=== PATIENT | male | born 1970 | race Caucasian/White ===

== ENCOUNTER 2017-06-02 01:15 | Emergency (ER) | payer OTHER ==
[2017-06-02 01:23] VITALS: TEMP 97.9
[2017-06-02] MEDS ORDERED: HYDROCODONE/APAP 5/325 TAB PO ONE (01:46)
[2017-06-02] MEDS ORDERED: HYDROCOD/APAP 5/325 PREPACK#6 BTL TAKEHOME ONE (01:46)
[2017-06-02] MEDS ORDERED: LIDOCAINE 5% 1 EA PATCH TD ONE (01:52)
[2017-06-02 01:54] LABS: % IMMATURE GRANULYOCYTES 0.4 % (0.0-1.1); ABSOLUTE IMMATURE GRANULOCYTES 0.02 10^3/uL (0.00-0.10); ADD DIFF? NO; ADD MORPH? NO; ADD SCAN? NO; ATYPICAL LYMPHOCYTE FLAG 10 (0-99); FRAGMENT RBC FLAG 0 (0-99); HEMATOCRIT 44.9 % (40.0-51.0); HEMOGLOBIN 15.3 g/dL (13.7-17.5); LEFT SHIFT FLG 0 (0-99); LIPEMIA HEMOLYSIS FLAG 90 (0-99); MEAN CELL HEMOGLOBIN 28.2 pg (27.9-34.1); MEAN CELL HEMOGLOBIN CONCENTR. 34.1 g/dL (32.4-36.7); MEAN CELL VOLUME 82.7 fL (81.5-99.8); MEAN PLATELET VOLUME 11.1 fL (8.7-11.7); PLATELET CLUMPS FLAG 0 (0-99); PLATELET COUNT 113 10^3/uL (150-400); RED BLOOD CELL COUNT 5.43 10^6/uL (4.40-6.38); RED CELL DISTRIBUTION WIDTH 14.6 % (11.5-15.2)
[2017-06-02 02:01] LABS: SEDIMENTATION RATE 8 MM/HR (0-15)
--- NOTE | 2017-06-02 02:06 | EDPHY ---
H & P Time Seen by Provider: 06/02/17 01:35 HPI/ROS: Chief complaint: Right hand pain History of present illness: This 46-year-old male with past medical history of diabetes mellitus, hypertension, depression, asthma, and schizoaffective disorder presents to the emergency department with a friend stating that he had an IV in his hand in December and since that time he has had some pain full nodules on the dorsum of the hand. He states he saw his primary care provider who thought it was a phlebitis. His friend states they gave him prednisone but that did not help. He has been taking ibuprofen without relief. He denies other trauma. The nodules are tender, palpable and erythematous. The move around and are not limited to the vessel where he states the IV was started. He has not had a fever or wound drainage. They admit to going to multiple other emergency departments for this same issue. He thinks an x-ray was done a few months back and believes it was normal. They also say that he has a follow-up appointment with an parts specialist on June 13 in [place]. A review of his past records at our facility shows a visit dated November 24, 2015 when he presented for pain and redness over the dorsal aspect of the same hand. He does not remember this visit. At that time he woke up with pain and assumed he hit his hand on his night stand. An x-ray on that visit was normal. REVIEW OF SYSTEMS: Constitutional: No fever, no chills. Eyes: No discharge. ENT: No sore throat. Respiratory: No cough, no shortness of breath. Cardiac: No chest pain, no palpitations. Gastrointestinal: No abdominal pain, no vomiting. Genitourinary: No hematuria. Musculoskeletal: No back pain. Skin: No rashes. Neurological: No headache. Past Medical/Surgical History: Past medical history includes diabetes mellitus, hypertension, depression, asthma, schizoaffective disorder Past surgical history includes cholecystectomy last December Family history is positive for premature coronary artery disease in his father ( ); The patient states his mother is in good health. Allergies: Haldol. He states he goes into anaphylactic shock. Medications include lisinopril, metformin, gabapentin, albuterol, Zoloft, Invega. The patient thinks he is on a few other medications but cannot remember them at this time. Social History: Social history: The patient has smoked 1 and half packs per day for approximately 35 years. He has an occasional alcoholic beverage maybe once a month. He denies marijuana or injectable drug use. Smoking Status: Current every day smoker Physical Exam: General: Alert and oriented x3, in mild discomfort Skin: Normal for ethnicity, warm and dry HEENT: Normocephalic, atraumatic, pupils equally round, conjunctiva clear without erythema, mucosa moist Neck: Supple, no JVD Cardiac: Normal peripheral perfusion, no edema Pulmonary: Nonlabored respirations Musculoskeletal: The right hand has 2 palpable nodules that are tender and slightly erythematous. There is no warmth. The nodules are on the dorsum of the hand between the 1st and 2nd digit and over the base of the thumb. There are no open wounds, lymphadenitis, and does not follow the course of the the vessel where the patient states he had his IV in December. Pulses and capillary refill are normal. Good truck shop mechanic strength. Neuro: The patient has a slight tremor; no agitation. Constitutional: Initial Vital Signs Temperature (C) 97.9 F 06/02/17 01:19 Heart Rate 69 06/02/17 01:19 Respiratory Rate 18 06/02/17 01:19 Blood Pressure 142/87 H 06/02/17 01:19 O2 Sat (%) 95 06/02/17 01:19 O2 Delivery Mode Room Air Allergies/Adverse Reactions: haloperidol [From Haldol] Allergy (Verified 11/24/15 19:11) haloperidol lactate [From Haldol] Allergy (Verified 11/24/15 19:11) Home Medications: Medication Instructions Recorded Albuterol [Proventil Inhaler HFA 2 puffs IH Q4 PRN 01/14/15 (*)] Atorvastatin Calcium [Lipitor 40 40 mg PO HS 01/14/15 mg (*)] Beclomethasone Qvar 80 [Qvar 80 2 puffs IH QID PRN 01/14/15 (*)] Doxepin HCl 300 mg PO HS 01/14/15 Fenofibrate [Tricor 145 mg (*)] 145 mg PO DAILY 01/14/15 Insulin Aspart [novoLOG] 10 unit SC AC 01/14/15 Insulin Detemir [Levemir] 45 unit SC HS 01/14/15 Paliperidone Palmitate [Invega 234 mg IM .[id number] 01/14/15 Sustenna (*)] Lisinopril [Zestril 10 mg (*)] 10 mg PO DAILY #30 tab 01/20/15 Mirtazapine [Remeron] 30 mg PO DAILY #30 tab 01/20/15 Quetiapine Fumarate [Seroquel Xr] 1,200 mg PO HS #90 tab.sr.24h 01/20/15 Quetiapine Fumarate [Seroquel Xr] 200 mg PO HS #30 tab.sr.24h 01/20/15 busPIRone [Buspar (*)] 30 mg PO BID #60 tab 01/20/15 lamoTRIgine [LamICTAL 100 MG (*)] 300 mg PO DAILY #30 tab 01/20/15 metFORMIN HCL [Glucophage 500 mg 1,000 mg PO BIDMEAL #60 tab 01/20/15 (*)] oxyCODONE/APAP 5/325 [Percocet 1 - 2 tab PO Q4-6PRN PRN #14 tab 09/17/15 5/325 (RX)] AZITHROMYCIN [Z-PACK] 250 mg PO DAILY #4 packet 11/02/15 guaiFENesin [Mucinex] 600 mg PO BID #20 tab.er 11/02/15 Medical Decision Making - Diagnostics Imaging: Discussed imaging studies w/ logistic specialist Radiologist (Diane), I viewed and interpreted images myself (STS betwees 1st and 2nd digit) ED Course/Re-evaluation: The patient was seen and examined. Vital signs and prior records were reviewed. As noted earlier the patient had a visit from November 2015 with similar complaints of pain and areas of erythema on the dorsum of the right hand. A plain x-ray was performed of the right hand and I felt there was a suggestion of soft tissue swelling between the 1st and 2nd digit however verbal report from the radiologist, Dr. Pan, was read as negative. He will review the film again after hearing the patient's history. Please refer to final report. A CBC showed only a mild thrombocytopenia probably from the patient's ibuprofen use. His basic metabolic panel was normal except for a slightly elevated blood glucose which was nonfasting. His sed rate was normal. His CRP came back elevated at 16. He was given 2 [place] in the emergency department and a topical Lidoderm patch without significant relief of his discomfort. He had a take-home bottle of [place]. No other prescriptions. He has a follow-up in place with an parts specialist on June 13, 2017. 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 Differential Diagnosis: Differential diagnosis includes but is not limited to rheumatoid nodules, foreign body, phlebitis, dermatologic condition (unidentified), contusion - Data Points Laboratory Results: Laboratory Results 06/02/17 01:33 06/02/17 01:06/02/17 06/02/17 01:33 01:33 WBC 5.59 10^3/uL 10^3/uL (3.80-9.50) RBC 5.43 10^6/uL 10^6/uL (4.40-6.38) Hgb 15.3 g/dL g/dL (13.7-17.5) Hct 44.9 % % (40.0-51.0) MCV 82.7 fL fL (81.5-99.8) MCH 28.2 pg pg (27.9-34.1) MCHC 34.1 g/dL g/dL (32.4-36.7) RDW 14.6 % % (11.5-15.2) Plt Count 113 10^3/uL L 10^3/uL (150-400) MPV 11.1 fL fL (8.7-11.7) Neut % (Auto) 68.0 % % (39.3-74.2) Lymph % (Auto) 24.7 % % (15.0-45.0) [place] % (Auto) 5.0 % % (4.5-13.0) Eos % (Auto) 1.4 % % (0.6-7.6) Baso % (Auto) 0.5 % % (0.3-1.7) Nucleat RBC Rel Count 0.0 % % (0.0-0.2) Absolute Neuts (auto) 3.80 10^3/uL 10^3/uL (1.70-6.50) Absolute Lymphs (auto) 1.38 10^3/uL 10^3/uL (1.00-3.00) Absolute Monos (auto) 0.28 10^3/uL L 10^3/uL (0.30-0.80) Absolute Eos (auto) 0.08 10^3/uL 10^3/uL (0.03-0.40) Absolute Basos (auto) 0.03 10^3/uL 10^3/uL (0.02-0.10) Absolute Nucleated RBC 0.00 10^3/uL 10^3/uL (0-0.01) Immature Gran % 0.4 % % (0.0-1.1) Immature Gran # 0.02 10^3/uL 10^3/uL (0.00-0.10) ESR 8 MM/HR MM/HR (0-15) Sodium 142 mEq/L mEq/L (134-144) Potassium 3.8 mEq/L mEq/L (3.5-5.2) Chloride 105 mEq/L mEq/L (97-110) Carbon Dioxide 23 mEq/l mEq/l (22-31) Anion Gap 14 mEq/L mEq/L (8-16) BUN 12 mg/dL mg/dL (7-23) Creatinine 0.8 mg/dL mg/dL (0.7-1.3) Estimated GFR > 60 Glucose 131 mg/dL H mg/dL (70-100) Calcium 9.2 mg/dL mg/dL (8.5-10.4) C-Reactive Protein 16.0 mg/L H mg/L (<10.0) Medications Given: Discontinued Medications Hydrocodone Bitart/Acetaminophen ([place] 5/325mg Prepack#6) 1 btl TAKEHOME EDNOW ONE Stop: 06/02/17 01:47 Last Admin: 06/02/17 02:29 Dose: 1 btl Hydrocodone Bitart/Acetaminophen ([place] 5/325) 2 tab PO EDNOW ONE Stop: 06/02/17 01:47 Last Admin: 06/02/17 01:57 Dose: 2 tab Lidocaine (Lidoderm 5%) 1 ea TD EDNOW ONE Stop: 06/02/17 01:53 Last Admin: 06/02/17 01:58 Dose: 1 ea Departure - Departure Disposition: Home, Routine, Self-Care Condition: Good Instructions: Hydrocodone/Acetaminophen (By mouth), Lidocaine Patch (On the skin), Arthralgia (ED) Additional Instructions: I am not sure what is causing the painful lumps in your hand for the last few months (or maybe even since your visit in November 2015). There is soft tissue swelling seen on your hand x-ray by my reading. I will call you tomorrow after the radiologist has officially read your x-ray. Your labs look good with the exception of decreased platelets which is probably for the ibuprofen you have been taking. One of the blood tests is not yet back and I will let you know that result tomorrow as well. Keep your appointment on 06/13/17 with the parts specialist but talk to your primary care provider about possibly seeing a [facility] [place] [facility] if he feels it is indicated. You may also need more advanced imaging as an outpatient. Return to the ER if symptoms worsen (fever, increased pain or suspected abscess, etc). Tell your primary care provider and any consultants that you had a prior visit in November 2015 that seemed like it was for similar symptoms and also that you had a plain hand x-ray and basic labs (CBC, BMP, CRP, ESR) in the ED tonight so they can review them. Referrals: Patient,NotPresent [Primary Care Provider] - As per Instructions DAIN REYES [Non Staff Provider ()] - As per Instructions (Call tomorrow to arrange a follow up with your primary care provider after your orthopedic follow up or sooner if symptoms change or worsen.)
[2017-06-02 02:07] LABS: ANION GAP 14 mEq/L (8-16); CALCIUM 9.2 mg/dL (8.5-10.4); CARBON DIOXIDE 23 mEq/l (22-31); CHLORIDE 105 mEq/L (97-110); CREATININE 0.8 mg/dL (0.7-1.3); GLOMERULAR FILTRATION RATE > 60; GLUCOSE 131 mg/dL (70-100); POTASSIUM 3.8 mEq/L (3.5-5.2); SODIUM 142 mEq/L (134-144)
[2017-06-02 04:39] VITALS: BP 137/69; PULSE 77; RESP 18; O2SAT 95
[2017-06-02] MEDS ORDERED: LIDOCAINE 5% 1 EA PATCH TD SCH (09:00)
[2017-06-02] MEDS ORDERED: PATCH REMOVAL 1 EA PATCH TD SCH ×2 (21:00)
== END 2017-06-02 03:06 | disposition home or self-care (01) ==
LOC: CED 01:15
DX: M79.641 Pain in right hand (principal); F17.200 Nicotine dependence, unspecified, uncomplicated; I10 Essential (primary) hypertension; E11.9 Type 2 diabetes mellitus without complications; J45.909 Unspecified asthma, uncomplicated; Z79.4 Long term (current) use of insulin
CPT/HCPCS: 73130-PO; 80048-PO; 85025-PO; 85652-PO

== ENCOUNTER 2018-08-13 18:32 | Inpatient (IN) | payer OTHER, MEDICAID ==
--- NOTE | 2018-08-13 18:51 | EDPHY ---
H & P Stated Complaint: DVT/from US Time Seen by Provider: 08/13/18 18:50 HPI/ROS: HPI: This is a 48-year-old male who presents with Chief Complaint: DVT from ultrasound Location: Left calf Quality: Swelling and pain Duration: 2 weeks Signs and Symptoms: No bleeding, no radiation, no numbness, no weakness, no tingling, no incontinence, + decreased range of motion, + swelling, + pain, no fever Timing: Gradually worsening Severity: Moderate to severe Context: Patient has a history of homozygous factor 5 Leiden, since March 2018 right upper extremity superficial venous thrombus on Coumadin, last INR level 2 days ago per patient was 3.7 presents from ultrasound with left posterior tibial vein deep venous thrombosis and greater saphenous vein superficial thrombosis. Patient is waiting for outpatient referral to Hematology. He also has developed he what appears to be a hematoma in his left hand. Patient does use tobacco. Patient reports that over the last 2 weeks he has developed left calf swelling, pain and mild redness. Denies shortness of breath, chest pain, recent long distance travel. Patient will reports that he gets superficial clots with any IV placement or laboratory access. Modifying Factors: Coumadin Comment: ROS: A comprehensive 10 system review of systems is otherwise negative aside from elements mentioned in the history of present illness. MEDICAL/SURGICAL/SOCIAL HISTORY: Medical history: SCHIZOAFFECTIVE DISORDER, asthma, factor 5 Leiden, DVT, superficial thrombophlebitis Surgical history: vasectomy Social history: Tobacco user CONSTITUTIONAL: Polite and cooperative, middle-aged white male, smells of tobacco, awake and alert, no obvious distress HEENT: Atraumatic and normocephalic. NECK: supple, no midline tenderness Cardiovascular: Normal S1/S2, regular rate, regular rhythm, without murmur rub or gallop. PULMONARY/CHEST: Symmetrical and nontender. Clear to auscultation bilaterally. Good air movement. No accessory muscle usage. ABDOMEN: Soft, nondistended, nontender, protuberant. EXTREMITIES: 2/2 pulses, strength 5/5, left calf is twice the size of the right calf; positive Homans sign; mild erythema and warmth. No palpable cords. DIP/PIP/MCP flexion/extension intact with good light touch sensation. no deformities, no clubbing, no cyanosis or edema. NEUROLOGICAL: no focal neuro deficits. GCS 15. Light touch sensation intact. SKIN: Warm and dry, left hand at the base of the 5th metacarpal shows small hematoma that is approximately 2 in in size. no rash. Good capillary refill. Source: Patient Exam Limitations: No limitations - Personal History Current Tetanus/Diphtheria Vaccine: No - Medical/Surgical History Hx Asthma: No Hx Chronic Respiratory Disease: No Hx Diabetes: No Hx Cardiac Disease: No Hx Renal Disease: No Hx Cirrhosis: No Hx Alcoholism: No Hx HIV/AIDS: No Hx Splenectomy or Spleen Trauma: No Other PMH: SCHIZOAFFECTIVE DISORDER. asthma. vasectomy - Social History Smoking Status: Current every day smoker Constitutional: Initial Vital Signs Temperature (C) 36.9 C 08/13/18 18:41 Heart Rate 82 08/13/18 18:41 Respiratory Rate 18 08/13/18 18:41 Blood Pressure 133/81 H 08/13/18 18:41 O2 Sat (%) 93 08/13/18 18:41 O2 Delivery Mode Room Air Allergies/Adverse Reactions: aripiprazole [From Abilify] Allergy (Verified 08/13/18 18:44) haloperidol [From Haldol] Allergy (Verified 08/13/18 18:44) haloperidol lactate [From Haldol] Allergy (Verified 08/13/18 18:44) Home Medications: Medication Instructions Recorded Albuterol [Proventil Inhaler HFA 2 puffs IH Q4 PRN 01/14/15 (*)] Atorvastatin Calcium [Lipitor 40 40 mg PO HS 01/14/15 mg (*)] Beclomethasone Qvar 80 [Qvar 80] 2 puffs IH QID PRN 01/14/15 Doxepin HCl 300 mg PO HS 01/14/15 Fenofibrate [Tricor 145 mg (*)] 145 mg PO DAILY 01/14/15 Insulin Aspart [novoLOG] 10 unit SC AC 01/14/15 Insulin Detemir [Levemir] 45 unit SC HS 01/14/15 Paliperidone Palmitate [Invega 234 mg IM .[id number] 01/14/15 Sustenna (*)] Lisinopril [Zestril 10 mg (*)] 10 mg PO DAILY #30 tab 01/20/15 Mirtazapine [Remeron] 30 mg PO DAILY #30 tab 04/15/15 Quetiapine Fumarate [Seroquel Xr] 1,200 mg PO HS #90 tab.sr.24h 01/20/15 Quetiapine Fumarate [Seroquel Xr] 200 mg PO HS #30 tab.sr.24h 01/20/15 busPIRone [Buspar (*)] 30 mg PO BID #60 tab 01/20/15 lamoTRIgine [LamICTAL 100 MG (*)] 300 mg PO DAILY #30 tab 01/20/15 metFORMIN HCL [Glucophage 500 mg 1,000 mg PO BIDMEAL #60 tab 01/20/15 (*)] oxyCODONE/APAP 5/325 [Percocet 1 - 2 tab PO Q4-6PRN PRN #14 tab 09/17/15 5/325 (RX)] AZITHROMYCIN [Z-PACK] 250 mg PO DAILY #4 packet 11/02/15 guaiFENesin [Mucinex] 600 mg PO BID #20 tab.er 11/02/15 Medical Decision Making - Diagnostics Imaging Results: Imaging Impressions Extremity Venous Study 08/13/18 17:32 Impression: 1. Positive deep venous thrombosis in the left calf posterior tibial vein. 2. Positive superficial thrombophlebitis in the left calf greater saphenous vein 3. No deep venous thrombosis right leg. Findings and recommendations given to Dr. Fuller labor relations manager for Rolando Mcdonough MD at 18:22 hour, 08/13/2018. Patient will be taken to the emergency department. Findings and recommendations discussed with Emergency Department physician, Erika Funk PA-C at 18:28 hour, 08/13/2018. Final report concurs with initial preliminary interpretation. A test result has been communicated to a licensed care provider and documented in the [employer] Critical Result system on 08/13/2018 18:30, Message ID [id number]. ED Course/Re-evaluation: Vital signs reviewed and stable upon arrival. O2 sats 93% on room air. No tachycardia. Patient is left calf positive DVT in the posterior tibial vein along with superficial left greater saphenous vein thrombosis. IV access and laboratory studies obtain. 1927: Labs reviewed. WBC 7 K, H&H 16.9/49.1, platelets 131K, INR 2.6, creatinine 0.9 Given Lovenox 1 mg/kg may be a candidate for IVC filter? ED decision to consult for admission. Will consult Hematology for anticoagulation and hospitalist for admission. Spoke with Hematology Dr. Mejía , who recommends treatment with Lovenox 1 mg/kg twice daily and will kindly consult on patient. Spoke with hospitalist, Dr. Rob Song, who kindly agrees to admit patient and provide further care. This patient was seen under the supervision of my secondary supervising physician. I evaluated care for this patient with the help of my attending. Discussed this patient with Dr. Salinas. Differential Diagnosis: Differential diagnosis includes but is not limited to coagulopathy, DVT. - Data Points Laboratory Results: Laboratory Results 08/13/18 19:05 08/13/18 19:05 08/13/18 08/13/18 08/13/18 19: 19: 19:05 WBC 7.81 10^3/uL 10^3/uL (3.80-9.50) RBC 5.99 10^6/uL 10^6/uL (4.40-6.38) Hgb 16.9 g/dL g/dL (13.7-17.5) Hct 49.1 % % (40.0-51.0) MCV 82.0 fL fL (81.5-99.8) MCH 28.2 pg pg (27.9-34.1) MCHC 34.4 g/dL g/dL (32.4-36.7) RDW 14.6 % % (11.5-15.2) Plt Count 131 10^3/uL L 10^3/uL (150-400) MPV 10.8 fL fL (8.7-11.7) Neut % (Auto) 70.7 % % (39.3-74.2) Lymph % (Auto) 20.0 % % (15.0-45.0) [place] % (Auto) 6.9 % % (4.5-13.0) Eos % (Auto) 1.4 % % (0.6-7.6) Baso % (Auto) 0.4 % % (0.3-1.7) Nucleat RBC Rel Count 0.0 % % (0.0-0.2) Absolute Neuts (auto) 5.52 10^3/uL 10^3/uL (1.70-6.50) Absolute Lymphs (auto) 1.56 10^3/uL 10^3/uL (1.00-3.00) Absolute Monos (auto) 0.54 10^3/uL 10^3/uL (0.30-0.80) Absolute Eos (auto) 0.11 10^3/uL 10^3/uL (0.03-0.40) Absolute Basos (auto) 0.03 10^3/uL 10^3/uL (0.02-0.10) Absolute Nucleated RBC 0.00 10^3/uL 10^3/uL (0-0.01) Immature Gran % 0.6 % % (0.0-1.1) Immature Gran # 0.05 10^3/uL 10^3/uL (0.00-0.10) PT 27.8 SEC H SEC (12.0-15.0) INR 2.60 H (0.83-1.16) APTT 49.1 SEC H SEC (23.0-38.0) Sodium 139 mEq/L mEq/L (135-145) Potassium 4.2 mEq/L mEq/L (3.3-5.0) Chloride 102 mEq/L mEq/L (97-110) Carbon Dioxide 26 mEq/l mEq/l (22-31) Anion Gap 11 mEq/L mEq/L (6-14) BUN 18 mg/dL mg/dL (7-23) Creatinine 0.9 mg/dL mg/dL (0.7-1.3) Estimated GFR > 60 Glucose 107 mg/dL H mg/dL (70-100) Calcium 9.9 mg/dL mg/dL (8.5-10.4) Medications Given: Discontinued Medications Hydrocodone Bitart/Acetaminophen ([place] 5/325) 2 tab PO EDNOW ONE Stop: 08/13/18 19:19 Last Admin: 08/13/18 19:19 Dose: 2 tab Enoxaparin Sodium (Lovenox) 112 mg SC EDNOW ONE Stop: 08/13/18 19:32 Last Admin: 08/13/18 19:53 Dose: 112 mg Departure - Departure Disposition: [facility] Clinical Impression: Factor V Leiden, Thrombocytopenia Left leg DVT Qualifiers: Affected thrombotic vein of extremity: tibial Chronicity: acute Qualified Code( s): I82.442 - Acute embolism and thrombosis of left tibial vein Condition: Fair
[2018-08-13] MEDS ORDERED: HYDROCODONE/APAP 5/325 TAB PO ONE (19:18)
[2018-08-13 19:21] LABS: PLATELET COUNT 131 10^3/uL (150-400)
[2018-08-13] MEDS ORDERED: ENOXAPARIN 120 MG/0.8 ML SYR SC ONE (19:31)
[2018-08-13 19:33] LABS: INR 2.6 (0.83-1.16); PROTIME(PATIENT) 27.8 SEC (12.0-15.0)
[2018-08-13] MEDS ORDERED: ACETAMINOPHEN 325 MG TAB PO PRN (20:49)
[2018-08-13] MEDS ORDERED: ENOXAPARIN 120 MG/0.8 ML SYR SC SCH (21:00)
--- NOTE | 2018-08-13 21:39 | GHP ---
DATE OF ADMISSION: 08/13/2018 CHIEF COMPLAINT: Left leg pain and swelling. HISTORY OF PRESENT ILLNESS: This is a 48-year-old male with a history of factor V Leiden mutation an d DVTs and superficial phlebitis, who was found to have a DVT in the left calf posterior tibial vein and superficial thrombophlebitis in the left calf greater saphenous vein despite having a therapeutic INR. Patient has been struggling with superficial phlebitis and has been on warfarin the past few months. Per the patient's report, his INR has been therapeutic. Currently, he denies any chest pain or shor tness of breath. He does smoke 2 packs of cigarettes per day and does not really want to quit. PAST MEDICAL HISTORY: 1. Factor V Leiden mutation. 2. Schizoaffective disorder. 3. Asthma. 4. Hypertension. 5. Diabetes. PAST SURGICAL HISTORY: 1. Vasectomy. 2. Cholecystectomy. 3. Urethral diverticulum repair. HOME MEDICATIONS: Reviewed. Refer to [employer] for details. ALLERGIES: Haldol and Abilify. SOCIAL HISTORY: Patient is a smoker. Denies any alcohol or illicit drug use. FAMILY HISTORY: Reviewed and noncontributory. REVIEW OF SYSTEMS: Comprehensive 10-point review of systems was done and is negative, except for as mentioned in the HPI. PHYSICAL EXAM: VITAL SIGNS: Blood pressure 140/79, pulse 75, respiratory rate 16, O2 sat 92% on rickey m air, temperature afebrile. GENERAL: No acute distress. HEAD: Normocephalic, atraumatic. EYES: PERRLA. Sclerae anicteric. MOUTH: Moist mucous membranes. NECK: Supple. No lymphadenopathy. C ARDIOVASCULAR: S1, S2. No JVD. There is left lower extremity edema with some tenderness over the l eft calf. ABDOMEN: Soft, nontender, nondistended. No guarding or rebound tenderness. Normoactive bowel sounds. EXTREMITIES: No clubbing or cyanosis. NEURO: Cranial nerves 2 through 12 grossly in tact. No focal motor or sensory deficits. SKIN: Clear. There are multiple tattoos; scorpion left forearm, right calf has a colorful skull. DIAGNOSTICS: WBC 7.8, hemoglobin 16.9, hematocrit 49.1, platelets 131, INR 2.6. Sodium 139, potassi um 4.2, chloride 102, BUN 18, creatinine 0.9, glucose 107. Lower extremity Doppler done today was re viewed showing DVT left calf posterior tibial vein as well as some superficial phlebitis. ASSESSMENT AND PLAN: This is a 48-year-old male with history of factor V Leiden mutation presenting with: 1. Left posterior tibial vein deep venous thrombosis while on Coumadin. a. Plan: Patient will be started on 1 mg/kg dosing of enoxaparin twice a day. The emergency room h as discussed the case with the on-call broth mixer, who will see the patient in the morning. I have discussed the risks of smoking and blood clots with the patient, and he understands this risk. He d oes not wish to quit smoking at this time. 2. Tobacco abuse. a. Plan: Will order nicotine replacement while in the hospital. 3. History of diabetes mellitus type 2. a. Plan: Monitor blood sugars and continue home medications. 4. History of hypertension. a. Plan is to continue home blood pressure medications and monitor blood pressure. 5. History of schizoaffective disorder. a. Plan is continue patient's home medications. 6. The patient requests to be full code status. /[id number]/MODL
[2018-08-13] MEDS: oxyCODONE IR 5 MG TAB PO PRN (22:03)
[2018-08-14 04:41] LABS: PLATELET COUNT 114 10^3/uL (150-400)
[2018-08-14] MEDS: oxyCODONE IR 5 MG TAB PO PRN (06:07)
[2018-08-14] MEDS: NICOTINE 21 MG/24 HR PATCH TD SCH (08:59)
[2018-08-14] MEDS ORDERED: ENOXAPARIN 120 MG/0.8 ML SYR SC SCH (09:00)
[2018-08-14] MEDS ORDERED: ALBUTEROL 60 PUFFS/8 GM MDI IH PRN (10:16)
[2018-08-14] MEDS ORDERED: HYDROCODONE/APAP 5/325 TAB PO PRN ×2 (10:16→12:30)
[2018-08-14] MEDS ORDERED: SALMETEROL IH SCH (10:30)
[2018-08-14] MEDS ORDERED: FENOFIBRATE 145 MG TAB PO SCH (10:30)
[2018-08-14] MEDS ORDERED: FLUTICASONE IH SCH (10:30)
[2018-08-14] MEDS ORDERED: IPRATROPIUM/ALBUTEROL 3 ML DEYVIAL ONE (11:36)
[2018-08-14] MEDS: IPRATROPIUM/ALBUTEROL 4GM MDI IH SCH ×3 (11:58→21:26)
--- NOTE | 2018-08-14 12:15 | ASMTCMCOM ---
CM Note CM Note Notes: patient plan of care reviewed in rounds. . 48 year old male admitted with DVT with factor V mutation. He is to be seen by hematology. Uncertain as to his therapeutic coumadin levels, Current with [facility], referral sent in allscripts. CM to follow for other needs. Plan: Home with [facility] when medically cleared for dc. Date Signed: 08/14/2018 12:14 PM Electronically Signed By:Jacqueline Beal RN
[2018-08-14] MEDS: BENZTROPINE MESYLATE 1 MG TAB PO SCH ×2 (12:30→13:44)
[2018-08-14] MEDS: busPIRone 15 MG TAB PO SCH ×2 (12:37→21:00)
[2018-08-14] MEDS: buPROPion XL 150 MG TAB PO SCH (12:38)
[2018-08-14] MEDS: LOSARTAN POTASSIUM 50 MG TAB PO SCH (12:39)
--- NOTE | 2018-08-14 14:01 | HOSPPROG ---
Hospitalist Progress Note Assessment/Plan: 48 yo M w FV Leiden, schizoaffective disorder here w DVT in setting of likely failed coumadin therapy DVT: appears to have failed coumadin has BROADCAST SYSTEMS ENGINEER admin meds has had therapeutic INR's per report sx X 2 weeks tranitioned to [facility] confusion: per family, having a hard time answering questions psych meds given late this AM has been having "chills" check cxr and UA low suspicion schizaoaffective disorder: continue meds pain: prn pain meds dispo: change to inpatient given confusion Subjective: confused Objective: Vital Signs Temp Pulse Resp BP Pulse Ox 36.9 C 70 14 130/66 H 91 L 08/14/18 11:23 08/14/18 11:52 08/14/18 11:52 08/14/18 11:23 08/14/18 11:52 Laboratory Results 08/14/18 04:26 08/13/18 08/14/18 08/15/18 05:59 05:59 05:59 Intake Total 400 Balance 400 PT 27.8 SEC (12.0-15.0) H 08/13/18 19:05 INR 2.60 (0.83-1.16) H 08/13/18 19:05 - Physical Exam Constitutional: no apparent distress, appears nourished Eyes: PERRL, anicteric sclera Ears, Nose, Mouth, Throat: moist mucous membranes, hearing normal Cardiovascular: regular rate and rhythym, no murmur, rub, or gallop Respiratory: other (distant breath sounds, no wheeze) Gastrointestinal: normoactive bowel sounds, soft, non-tender abdomen, No guarding, No rebound Genitourinary: no bladder fullness, No min in urethra Skin: warm, normal color Musculoskeletal: full muscle strength, no muscle tenderness Neurologic: No AAOx3 Psychiatric: No interacting appropriately ICD10 Worksheet Patient Problems: Problems Problem Status Onset Factor V Leiden Acute Left leg DVT Acute Thrombocytopenia Acute Schizophrenia, paranoid, chronic with acute exacerbation Acute
--- NOTE | 2018-08-14 14:27 | PDMN ---
Medical Necessity Medical necessity: Changed to IP as of 08/14/2018 per and MCG M-350; los > 2 mn for ongoing management and tx of DVT. Pt developed new confusion requiring further monitoring, workup, and med management.
[2018-08-14] MEDS: GABAPENTIN 300 MG CAP PO SCH (15:51)
--- NOTE | 2018-08-14 20:31 | GCON ---
HEMATOLOGY CONSULTATION REFERRING PHYSICIAN: Rob Song DO REASON FOR CONSULTATION: DVT despite Coumadin. HPI: The patient is a 48-year-old man who was admitted yesterday with 1-1/2 weeks of left ankle swelling. He was found to have a DVT in the left posterior tibial vein and superficial phlebitis in the left greater saphenous vein in the calf. Right lower extremity Doppler was negative. He is on Coumadin and is reported to have had an INR of 3.7 as an outpatient. INR 2.6 on presentation to the emergency room. His prior history is somewhat confusing. He has had his care primarily at [facility] and [facility]. His mother and girlfriend are present. They report he has been having issues with left arm clots since February and has been on Coumadin for perhaps a couple of months. His girlfriend reports he has been taking Coumadin regularly, as he has a home care nurse who fills his pillbox weekly. She reports his INRs have been quite variable with both subtherapeutic and supratherapeutic values, and many dose changes have been made. From records available at [facility], a right upper extremity ultrasound (04/10/2018) was negative for DVT, but demonstrated superficial thrombosis in the mid cephalic vein from the upper arm to the distal forearm. Bilateral ultrasound (05/03/2018) demonstrated stable thrombus in the right cephalic vein and superficial thrombus in the left basilic and cephalic veins. No DVT. Left lower extremity Doppler (06/04/2018) demonstrated superficial thrombus and a varicose vein in the mid calf. No DVT. Left upper extremity ultrasound (06/04/2018) demonstrated decrease in the superficial cephalic and basilic vein thromboses. No DVT. Left upper extremity ultrasound (06/14/2018) demonstrated no change from 06/04/2018. Left upper extremity ultrasound (2017) demonstrated stable thrombus in the cephalic vein at the level of the antecubital fossa with resolution of prior basilic vein thrombus. He is reported to have a Factor V Leiden mutation, although I do not see test results. He has seen Dr. Oscar Fowler in Hematology consultation for thrombocytopenia and splenomegaly. CT scan, 01/2018, demonstrated splenomegaly (17.2 cm). A prior CT 12/2016, also demonstrated splenomegaly ([address] Fowler's notes describe mild thrombocytopenia ranging from 104,000 to 121,000. Laboratory studies demonstrated normal LDH, SPEP, quantitative immunoglobulins, anti- platelet antibodies, flow cytometry. Followup office visit and labs were planned in 2 months (last visit 02/28/2018). He has been on therapeutic Lovenox since admission. PAST MEDICAL HISTORY: 1. Type 2 diabetes. 2. Bipolar disorder. 3. Schizoaffective disorder. 4. COPD. 5. Urachal diverticulum. PAST SURGICAL HISTORY: Cholecystectomy, vasectomy. FAMILY HISTORY: Father had colon cancer. He has no family history of thrombosis. He has 2 adult children. SOCIAL HISTORY: He lives with his girlfriend in [place]. He is on disability. He smokes 2 packs per day for the past 36 years. He occasionally drinks alcohol. REVIEW OF SYSTEMS: RESPIRATORY: No chest pain, pleurisy. Long-standing unchanged dyspnea attributed to COPD. CARDIOVASCULAR: Left lower extremity edema per HPI. They report he continues to have swelling in his left upper extremity and hand. HEMATOLOGIC: No bleeding. Otherwise, 10-point review of systems negative. PHYSICAL EXAM: VITAL SIGNS: Blood pressure 122/72, pulse 67, respirations 14, 90% on room air, afebrile. GENERAL: A somewhat sedated gentleman who seems to answer our questions appropriately. HEENT: No scleral icterus. LUNGS: Breathing comfortably, clear to auscultation. CARDIOVASCULAR: Left lower extremity is slightly warm over the calf. ABDOMEN: Soft and nontender. SKIN: There is some swelling and ecchymosis over the left dorsal hand. LABORATORY DATA: On admission, normal CBC with the exception of platelets 131, 000. INR 2.6. Normal BMP. RADIOLOGIC STUDIES: Ultrasound per HPI. Chest x-ray negative for an acute process. IMPRESSION: 1. Left [id number] deep venous thrombosis despite currently therapeutic INR on Coumadin. 2. History of upper extremity superficial venous thromboses. 3. Mild thrombocytopenia. 4. Splenomegaly. PLAN: I do not think he has necessarily failed Coumadin, rather, his INRs by report have been very erratic, both subtherapeutic and supratherapeutic by report. Given the difficulty in maintaining a consistently therapeutic INR, an alternative anticoagulant such as Xarelto would be appropriate. This would not require monitoring. I emphasized the importance of strict compliance given the short half-life. He is very good at taking morning medications and has a home health nurse who can assist with his pillbox. His clotting history (bilateral upper extremity superficial thromboses, left asvcd-nuu-zaxy DVT) requires additional evaluation, particularly for antiphospholipid syndrome. It is not clear there was a specific provoking event. RECOMMENDATIONS: 1. Xarelto 15 mg twice daily for 3 weeks, then 20 mg daily. As his INR is less than 3, he can start on Xarelto at any time. 2. Recommend followup at [facility] for continued followup of thrombocytopenia, splenomegaly and review of hypercoagulable laboratory studies. /[id number]/MODL MTDD
[2018-08-14] MEDS ORDERED: buPROPion XL 150 MG TAB PO SCH (21:00)
[2018-08-14] MEDS ORDERED: traZODone 100 MG TAB PO SCH (21:00)
[2018-08-14] MEDS ORDERED: ATORVASTATIN CALCIUM 40 MG TAB PO SCH (21:00)
[2018-08-14] MEDS ORDERED: GABAPENTIN 300 MG CAP PO SCH (21:00)
[2018-08-14] MEDS: ENOXAPARIN 120 MG/0.8 ML SYR SC SCH (21:01)
[2018-08-14] MEDS: FLUTICASONE/SALMETER 250/50MCG DISKUS IH SCH ×2 (21:04→21:27)
[2018-08-15 05:24] LABS: PLATELET COUNT 110 10^3/uL (150-400)
[2018-08-15 05:52] LABS: INR 1.51 (0.83-1.16); PROTIME(PATIENT) 18.4 SEC (12.0-15.0)
[2018-08-15] MEDS: IPRATROPIUM/ALBUTEROL 4GM MDI IH SCH ×3 (06:07→15:45)
[2018-08-15] MEDS: buPROPion XL 150 MG TAB PO SCH (07:55)
[2018-08-15] MEDS: BENZTROPINE MESYLATE 1 MG TAB PO SCH (07:56)
[2018-08-15] MEDS: busPIRone 15 MG TAB PO SCH (07:56)
[2018-08-15] MEDS: LOSARTAN POTASSIUM 50 MG TAB PO SCH (07:56)
[2018-08-15] MEDS: ENOXAPARIN 120 MG/0.8 ML SYR SC SCH (07:58)
[2018-08-15] MEDS: NICOTINE 21 MG/24 HR PATCH TD SCH (07:59)
[2018-08-15] MEDS ORDERED: GABAPENTIN 300 MG CAP PO SCH (09:00)
[2018-08-15 11:22] LABS: HEPATITIS B CORE AB TOTAL NEGATIVE (NEGATIVE); HEPATITIS B SURFACE ANTIGEN NEGATIVE (NEGATIVE); HEPATITIS C ANTIBODY TOTAL NEGATIVE (NEGATIVE)
[2018-08-15] MEDS: FLUTICASONE/SALMETER 250/50MCG DISKUS IH SCH ×2 (11:25→15:45)
[2018-08-15] MEDS: GABAPENTIN 300 MG CAP PO SCH (15:44)
[2018-08-15 15:49] VITALS: BP 117/74
--- NOTE | 2018-08-15 15:49 | HOSPPROG ---
Hospitalist Progress Note Assessment/Plan: 48 yo M w FV Leiden, schizoaffective disorder here w DVT in setting of likely failed coumadin therapy DVT: appears to have failed coumadin has [employer] admin meds has had therapeutic INR's per report sx X 2 weeks tranitioned to LMWH confusion: per family, having a hard time answering questions psych meds given late this AM has been having "chills" check cxr and UA low suspicion schizaoaffective disorder: continue meds pain: prn pain meds dispo: home today > 30 minutes Subjective: very anxious for dc. infectious workup negative Objective: Vital Signs Temp Pulse Resp BP Pulse Ox 36.4 C 80 16 111/66 92 08/15/18 12:32 08/15/18 12:32 08/15/18 12:32 08/15/18 12:32 08/15/18 12:32 Laboratory Results 08/15/18 04:54 08/15/18 04:54 08/14/18 08/15/18 08/16/18 05:59 05:59 05:59 Intake Total 400 Balance 400 PT 18.4 SEC (12.0-15.0) H 08/15/18 04:54 INR 1.51 (0.83-1.16) H 08/15/18 04:54 - Physical Exam Constitutional: no apparent distress, appears nourished Eyes: PERRL, anicteric sclera Ears, Nose, Mouth, Throat: moist mucous membranes, hearing normal Cardiovascular: regular rate and rhythym, no murmur, rub, or gallop Respiratory: no respiratory distress, no rales or rhonchi Gastrointestinal: normoactive bowel sounds, soft, non-tender abdomen Genitourinary: no bladder fullness Skin: warm Musculoskeletal: full muscle strength ICD10 Worksheet Patient Problems: Problems Problem Status Onset Factor V Leiden Acute Left leg DVT Acute Thrombocytopenia Acute Schizophrenia, paranoid, chronic with acute exacerbation Acute
--- NOTE | 2018-08-15 15:54 | PDIAF ---
- Diagnosis Diagnosis: recurrent dvt Code Status: Full Code - Medication Management Additional Medication Instructions: start xarelto 20 mg po daily AFTER three weeks of 15 mg po bid. this will be on 08/30/18 Discharge Medications: electronically signed and located in the Home Medication List. - Orders Services needed: Registered Nurse Isolation Type: None - Follow Up Care Current Providers and Referrals: Rolando Mcdonough MD [Primary Care Provider] -
--- NOTE | 2018-08-15 16:11 | ASMTDCNOTE ---
Case Management Discharge Discharge Order Complete? Answers: Yes Patient to Obtain Answers: via Family Medications Transportation Arranged Answers: Family/Friends Transport will Pick (Date 08/15/2018 04:10 PM & Time) Faxed Final Orders Answers: Yes Agency/Facility Transfer Answers: Yes Report Printed & Faxed to Receiving Agency Family Notified Answers: Yes Notes: in room Discharge Comments Notes: Spoke with pt and family in the room. Pt to discharge home on new anticoagulant medication. Katie RN with [facility] informed. Updated referral to [facility]. No further CM needs noted at this time. Date Signed: 08/15/2018 04:10 PM Electronically Signed By:Inez Morales
--- NOTE | 2018-08-15 16:14 | ASDISCHSUM ---
Discharge Information Plan Status:Home with Home Health Medically Cleared to Leave:08/14/2018 Discharge Date:08/14/2018 CM D/C Disposition:Home Health Service ADT D/C Disposition: Projected Discharge Date:08/15/2018 11:00 AM Transportation at D/C:Family Discharge Delay Reason: Follow-Up Date:08/15/2018 11:00 AM Discharge Slot: Final Diagnosis:DVT Placement Information Referral Type:*Home Health Care Services Referral ID:[id number] Provider Name:[facility] Address 1:[address] [address] Address 2: City:[place] Selection Factors: State:[place] Patient Contact Information Contact Name:MACARIO Relationship: Address:[phone] Work Phone: City:[place] Alternate Phone: State/Zip Code:[place] [address] Email: Financial Information Financial Class:Medicare Primary Plan Desc:MEDICARE INPATIENT Primary Plan Number:[id number] Secondary Plan Desc:[place] Secondary Plan Number:[id number] Assessment Information LACE LACE Length of stay for Answers: 2 days current admission Acuity / Level of Answers: Yes Care: Did the patient have an inpatient admission? Comorbidities - select Answers: Diabetes (uncontrolled or all that apply controlled) Other Notes: Factor V Leiden; DVT; H TN # of Emergency department Answers: 1-2 visits in the last 6 months Social determinants Answers: Mental health diagnosis (anxiety, depression, pers onality disorders, etc.) Score: 11 Date Signed: 08/15/2018 04:11 PM Electronically Signed By:Inez Morales [facility] CM Progress Note CM Note CM Note Notes: patient plan of care reviewed in rounds. . 48 year old male admitted with DVT with factor V mutation. He is to be seen by hematology. Uncertain as to his therapeutic coumadin levels, Current with [facility], referral sent in allscripts. CM to follow for other needs. Plan: Home with [facility] when medically cleared for dc. Date Signed: 08/14/2018 12:14 PM Electronically Signed By:Jacqueline Beal RN Case Management Discharge Plan Note Case Management Discharge Discharge Order Complete? Answers: Yes Patient to Obtain Answers: via Family [employer] Transportation Arranged Answers: Family/Friends Transport will Pick (Date 08/15/2018 04:10 PM & Time) Faxed Final Orders Answers: Yes Agency/Facility Transfer Answers: Yes Report Printed & Faxed to Receiving Agency Family Notified Answers: Yes Notes: in room Discharge Comments Notes: Spoke with pt and family in the room. Pt to discharge home on new anticoagulant medication. Katie SON with [facility] informed. Updated referral to [facility]. No further CM needs noted at this time. Date Signed: 08/15/2018 04:10 PM Electronically Signed By:Inez Morales Intervention Information
[2018-08-15] MEDS ORDERED: RIVAROXABAN 15 MG TAB PO SCH (18:00)
--- NOTE | 2018-08-15 18:43 | GDS ---
DISCHARGE DIAGNOSES: 1. Recurrent venous thromboembolism. 2. History of factor 5 Leiden. 3. Schizoaffective disorder on multiple medications. 4. Diabetes. Please see admission history and physical by Dr. Rob Song. The patient presented with a couple wee ks of leg swelling and a therapeutic INR and new evidence of a previously discovered DVT. He was see n by Oncology, who revealed that his INRs in the outpatient setting were not always therapeutic. The re was a plan to transition to Xarelto, which was done. Someone arranges his medications as an outpa tient and he takes them from pill boxes. I think this is a reasonable plan. He was provided with pr escriptions. On 1st hospital day, he was a little somnolent and out of it. A chest x-ray and urinal ysis were negative. He had no localizing symptoms, not febrile, tachycardic, did not have a leukocyt osis. This was felt consistent perhaps with a break in his psychiatric medication schedule. He felt much better on the day of discharge. He has outpatient followup with [facility] karina Estrada for evaluating his hypercoagulable situation. /[id number]/MODL
[2018-09-06] MEDS ORDERED: PALIPERIDONE PALMITATE 234 MG/1.5 ML SYR IM SCH (10:30)
== END 2018-08-15 16:27 | disposition home health service (06) | DRG 300 ==
LOC: EDSTATUS 18:32 → F1N 21:19 → OBSVTOIN 08-14 14:01
PROVIDERS: ADMIT Family Medicine; ATTEND Family Medicine
DX: I82.542 Chronic embolism and thrombosis of left tibial vein (principal); D68.51 Activated protein C resistance; I82.812 Embolism and thrombosis of superficial veins of left lower extremity; E11.9 Type 2 diabetes mellitus without complications; F25.9 Schizoaffective disorder, unspecified; I10 Essential (primary) hypertension; J45.909 Unspecified asthma, uncomplicated; Z79.01 Long term (current) use of anticoagulants; Z72.0 Tobacco use
CPT/HCPCS: 82607-90; 85060-90; 86147-90; 86704-90; 88184-90; 88185-91; G0378; G0472; J1650

== ENCOUNTER 2018-11-10 23:23 | Emergency (ER) | payer OTHER, MEDICAID ==
[2018-11-10] MEDS ORDERED: NS 1,000 ML IV ONE (23:36)
--- NOTE | 2018-11-10 23:36 | EDPHY ---
H & P Stated Complaint: Abdominal Pain Time Seen by Provider: 11/10/18 23:36 HPI/ROS: HPI CHIEF COMPLAINT: Abdominal pain. HISTORY OF PRESENT ILLNESS: 48-year-old male schizoaffective disorder, factor 5 Leiden deficiency, thromboembolism, on Coumadin and Lovenox shots, he presents emergency room right lower quadrant pain and diarrhea. Patient states his abdominal pain started around 4:00 a.m.. Is located in the right lower quadrant. Sharp stabbing right lower quadrant pain. Nonradiating. He thinks it may be due to where he gives himself Lovenox shots. However the pain got worse tonight. He has had watery diarrhea no blood. Denies chest pain or shortness of breath, denies fever. Past Medical History: Factor 5 Leiden deficiency, obesity, diabetes Past Surgical History: No recent surgery Social History: Denies drugs or alcohol. Smokes tobacco daily. Family History: Noncontributory ROS REVIEW OF SYSTEMS: 10 Systems were reviewed and negative with the exception of the elements mentioned in the history of present illness. Exam Constitutional triage nursing summary reviewed, vital signs reviewed, awake/ alert. Vital signs stable Eyes normal conjunctivae and sclera, EOMI, PERRLA. HENT normal inspection, atraumatic, moist mucus membranes, no epistaxis, neck supple/ no meningismus, no raccoon eyes. Respiratory clear to auscultation bilaterally, normal breath sounds, no respiratory distress, no wheezing. Cardiovascular rate normal, regular rhythm, no murmur, no edema, distal pulses normal. Gastrointestinal tender palpation right lower quadrant no rebound, no guarding , normal bowel sounds, no distension, no pulsatile mass. Genitourinary no CVA tenderness. Musculoskeletal no midline vertebral tenderness, full range of motion, no calf swelling, no tenderness of extremities, no meningismus, good pulses, neurovascularly intact. Skin pink, warm, & dry, no rash, skin atraumatic. Neurologic awake, alert and oriented x 3, AAOx3, moves all 4 extremities equally, motor intact, sensory intact, CN II-XII intact, normal cerebellar, normal vision, normal speech. Psychiatric normal mood/affect. Heme/Lymph/Immune no lymphadenopathy. Differential Diagnosis: Differential diagnosis includes but is not limited to and in no particular order: Bowel obstruction, appendicitis, gallbladder disease, diverticulitis, colitis, enteritis, perforated viscus, gastritis, GERD , esophagitis, urinary tract infection, pyelonephritis, kidney stones Medical Decision Making: Plan for this patient IV establishment IV fluid bolus , IV Dilaudid for pain control, basic blood work, CT scan abdomen pelvis with IV contrast. Re-evaluation: CT scan abdomen pelvis with IV contrast faxed to me by Radiology at 1:07 a.m., this shows gallstones without gross inflammation of the gallbladder and hepatosplenomegaly. Otherwise no acute inflammatory process seen. 0204: I did go reexamine the patient this time is abdomen is soft nontender he is not vomiting he in fact he was sleeping. He states he feels much better. Abdomen is soft nontender. No significant tenderness on exam. Patient is requesting discharge home. Return precautions discussed with the patient understands return emergency room if develops worsening abdominal pain, fever, vomiting I think gallstones are unlikely as he had no right upper quadrant abdominal pain is pain was in the lower abdomen. Patient has not any vomiting. Labs reviewed normal No fever. Return precautions discussed Abdomen is soft nontender time of discharge. Source: Patient - Personal History Current Tetanus/Diphtheria Vaccine: No Current Tetanus Diphtheria and Acellular Pertussis (TDAP): No - Medical/Surgical History Hx Asthma: Yes Hx Chronic Respiratory Disease: No Hx Diabetes: Yes Hx Cardiac Disease: No Hx Renal Disease: No Hx Cirrhosis: No Hx Alcoholism: No Hx HIV/AIDS: No Hx Splenectomy or Spleen Trauma: No Other PMH: SCHIZOAFFECTIVE DISORDER. asthma. vasectomy, gall bladder removal, diverticulum removal, phospholipid - Social History Smoking Status: Current every day smoker Constitutional: Initial Vital Signs Temperature (C) 36.5 C 11/10/18 23:26 Heart Rate 74 11/10/18 23:26 Respiratory Rate 18 11/10/18 23:26 Blood Pressure 129/65 H 11/10/18 23:26 O2 Sat (%) 92 11/10/18 23:26 O2 Delivery Mode Room Air Allergies/Adverse Reactions: aripiprazole [From Abilify] Allergy (Verified 11/10/18 23:31) haloperidol [From Haldol] Allergy (Verified 11/10/18 23:31) haloperidol lactate [From Haldol] Allergy (Verified 11/10/18 23:31) Home Medications: Medication Instructions Recorded Albuterol [Proventil Inhaler HFA 2 puffs IH Q4 PRN 01/14/15 (*)] Atorvastatin Calcium [Lipitor 40 40 mg PO HS 01/14/15 mg (*)] Paliperidone Palmitate [Invega 234 mg IM Q30D 01/14/15 Sustenna (*)] busPIRone [Buspar (*)] 30 mg PO BID #60 tab 01/20/15 metFORMIN HCL [Glucophage 500 mg 1,000 mg PO BIDMEAL #60 tab 01/20/15 (*)] Benztropine Mesylate 1 mg PO HS PRN 08/13/18 Bupropion HCl [Wellbutrin Xl] 300 mg PO DAILY 08/13/18 Hydrocodone/Acetaminophen [Whately 1 tab PO Q6H PRN 08/13/18 5/325 (*)] Ipratropium/Albuterol [Combivent 1 inh IH QID 08/13/18 Respimat Inhal [place](*)] Losartan Potassium [Cozaar 50 mg 50 mg PO DAILY 08/13/18 (*)] traZODone [traZODONE 100MG (*)] 100 mg PO HS 08/13/18 Fluticasone/Salmeter 250/50Mcg 1 puffs IH BID 08/14/18 [Advair 250/50 (*)] Gabapentin [Neurontin] 300 mg PO DAILY 08/14/18 Gabapentin [Neurontin] 300 mg PO DAILY16 PRN 08/14/18 Gabapentin [Neurontin] 600 mg PO HS 08/14/18 Rivaroxaban [Xarelto 15mg (*)] 15 mg PO BIDMEAL #41 tab 08/15/18 Rivaroxaban [Xarelto] 20 mg PO DAILY #30 tab 08/15/18 Coumadin 5MG (*) 11/10/18 Heparin 11/10/18 Medical Decision Making - Data Points Laboratory Results: Laboratory Results 11/10/18 23:46 11/10/18 23:46 11/11/18 11/10/18 11/10/18 00:00 23:46 23:46 WBC RBC Hgb Hct MCV MCH MCHC RDW Plt Count MPV Neut % (Auto) Lymph % (Auto) [place] % (Auto) Eos % (Auto) Baso % (Auto) Nucleat RBC Rel Count Absolute Neuts (auto) Absolute Lymphs (auto) Absolute Monos (auto) Absolute Eos (auto) Absolute Basos (auto) Absolute Nucleated RBC Immature Gran % Immature Gran # PT 16.0 SEC H SEC (12.0-15.0) INR 1.26 H (0.83-1.16) APTT 56.1 SEC H SEC (23.0-38.0) VBG Lactic Acid Sodium 140 mEq/L mEq/L (135-145) Potassium 3.7 mEq/L mEq/L (3.5-5.2) Chloride 106 mEq/L mEq/L (97-110) Carbon Dioxide 27 mEq/l mEq/l (22-31) Anion Gap 7 mEq/L mEq/L (6-14) BUN 16 mg/dL mg/dL (7-23) Creatinine 0.9 mg/dL mg/dL (0.7-1.3) Estimated GFR > 60 Glucose 115 mg/dL H mg/dL (70-100) Calcium 9.1 mg/dL mg/dL (8.5-10.4) Total Bilirubin 0.5 mg/dL mg/dL (0.1-1.4) Conjugated Bilirubin 0.4 mg/dL mg/dL (0.0-0.5) Unconjugated Bilirubin 0.1 mg/dL mg/dL (0.0-1.1) AST 37 IU/L IU/L (17-59) ALT 59 IU/L IU/L (21-72) Alkaline Phosphatase 134 IU/L H IU/L (38-126) Total Protein 6.6 g/dL g/dL (6.3-8.2) Albumin 4.2 g/dL g/dL (3.5-5.0) Lipase 82 IU/L IU/L (23-300) Urine Color YELLOW Urine Appearance CLEAR Urine pH 7.0 (5.0-7.5) Ur Specific [place] 1.021 (1.002-1.030) Urine Protein NEGATIVE (NEGATIVE) Urine Ketones NEGATIVE (NEGATIVE) Urine Blood NEGATIVE (NEGATIVE) Urine Nitrate NEGATIVE (NEGATIVE) Urine Bilirubin NEGATIVE (NEGATIVE) Urine Urobilinogen 4.0 EU H EU (0.2-1.0) Ur Leukocyte Esterase NEGATIVE (NEGATIVE) Urine Glucose NEGATIVE (NEGATIVE) 11/10/18 11/10/18 23:46 23:46 WBC 5.45 10^3/uL 10^3/uL (3.80-9.50) RBC 5.09 10^6/uL 10^6/uL (4.40-6.38) Hgb 14.9 g/dL g/dL (13.7-17.5) Hct 43.6 % % (40.0-51.0) MCV 85.7 fL fL (81.5-99.8) MCH 29.3 pg pg (27.9-34.1) MCHC 34.2 g/dL g/dL (32.4-36.7) RDW 13.5 % % (11.5-15.2) Plt Count 107 10^3/uL L 10^3/uL (150-400) MPV 10.9 fL fL (8.7-11.7) Neut % (Auto) 66.0 % % (39.3-74.2) Lymph % (Auto) 25.1 % % (15.0-45.0) Tompkins % (Auto) 6.8 % % (4.5-13.0) Eos % (Auto) 1.3 % % (0.6-7.6) Baso % (Auto) 0.4 % % (0.3-1.7) Nucleat RBC Rel Count 0.0 % % (0.0-0.2) Absolute Neuts (auto) 3.60 10^3/uL 10^3/uL (1.70-6.50) Absolute Lymphs (auto) 1.37 10^3/uL 10^3/uL (1.00-3.00) Absolute Monos (auto) 0.37 10^3/uL 10^3/uL (0.30-0.80) Absolute Eos (auto) 0.07 10^3/uL 10^3/uL (0.03-0.40) Absolute Basos (auto) 0.02 10^3/uL 10^3/uL (0.02-0.10) Absolute Nucleated RBC 0.00 10^3/uL 10^3/uL (0-0.01) Immature Gran % 0.4 % % (0.0-1.1) Immature Gran # 0.02 10^3/uL 10^3/uL (0.00-0.10) PT INR APTT VBG Lactic Acid 1.7 mmol/L mmol/L (0.7-2.1) Sodium Potassium Chloride Carbon Dioxide Anion Gap BUN Creatinine Estimated GFR Glucose Calcium Total Bilirubin Conjugated Bilirubin Unconjugated Bilirubin AST ALT Alkaline Phosphatase Total Protein Albumin Lipase Urine Color Urine Appearance Urine pH Ur Specific [place] Urine Protein Urine Ketones Urine Blood Urine Nitrate Urine Bilirubin Urine Urobilinogen Ur Leukocyte Esterase Urine Glucose Medications Given: Discontinued Medications Hydromorphone HCl (Dilaudid) 1 mg IVP EDNOW ONE Stop: 11/10/18 23:54 Last Admin: 11/10/18 23:58 Dose: 1 mg Sodium Chloride (Ns) 1,000 mls @ 0 mls/hr IV EDNOW ONE; Wide Open PRN Reason: Protocol Stop: 11/10/18 23:37 Last Admin: 11/10/18 23:55 Dose: 1,000 mls Departure - Departure Disposition: Home, Routine, Self-Care Clinical Impression: Abdominal pain Condition: Good Instructions: Acute Abdominal Pain (ED) Additional Instructions: 1. [place] diet over the next 24-48 hours 2. Return emergency room if worsening abdominal pain, fever, vomiting Referrals: QIAN DAN [Other] - As per Instructions
[2018-11-10] MEDS ORDERED: HYDROmorphONE/DILAUDID 2 MG/ML INJ IVP ONE (23:53)
[2018-11-11 00:08] LABS: PLATELET COUNT 107 10^3/uL (150-400)
[2018-11-11 00:12] LABS: INR 1.26 (0.83-1.16)
[2018-11-11] MEDS ORDERED: IOHEXOL 300 mgI/ML (OMNIPAQUE) 150 ML BTL IV ONE (00:31)
[2018-11-11 02:09] VITALS: BP 114/65
== END 2018-11-11 02:14 | disposition home or self-care (01) ==
DX: R10.9 Unspecified abdominal pain (principal); E86.9 Volume depletion, unspecified
CPT/HCPCS: 74177; 96361; 96374; 99285; J1170; Q9967